=== PATIENT | male | born 1955 | race Caucasian/White ===

== ENCOUNTER 2022-07-08 14:56 | Emergency (ER) | payer MEDICARE, SELFPAY ==
[2022-07-08 15:15] VITALS: BP 144/84; PULSE 82; RESP 16; TEMP 36.7; O2SAT 99
--- NOTE | 2022-07-08 16:28 | ED.GENADULT ---
HPI - General Adult General Chief complaint: Eye Problems Stated complaint: FB in right eye Source: patient Mode of arrival: ambulatory Limitations: no limitations History of Present Illness HPI narrative: Patient presents for evaluation of right eye irritation. He indicates he was mowing the lawn earlier today. He went inside was sitting at a table when he felt something go into his right eye. Since that time he has noted redness and tearing. He had some discomfort earlier but that has resolved. Denies any visual disturbance. He does not wear glasses or contacts. He is not diabetic. He does smoke. Date of last tetanus unknown. Related Data Home Medications Medication Instructions Recorded Confirmed aspirin 81 mg capsule 81 mg PO DAILY 07/08/22 07/08/22 atorvastatin 20 mg tablet 20 mg EVERY OTHER DAY 07/08/22 07/08/22 lisinopril 40 mg tablet 40 mg DAILY 07/08/22 07/08/22 Allergies Allergy/AdvReac Type Severity Reaction Status Date / Time No Known Allergies Allergy Verified 07/08/22 15:44 Review of Systems Review of Systems: CONSTITUTIONAL: Denies fever, chills, or sweats. EYES: Reports irritation, redness and tearing from the right eye. Reports discomfort in the right eye earlier, now resolved ENT: Denies rhinorrhea, congestion, sore throat, or otalgia. CARDIOVASCULAR: Denies chest pain, palpitations, or edema. RESPIRATORY: Denies cough or dyspnea. GASTROINTESTINAL: Denies abdominal pain, nausea, vomiting, or diarrhea. GENITOURINARY: Denies dysuria or hematuria. SKIN: Denies rash or itching. MUSCULOSKELETAL: Denies back pain, joint pain, or myalgia. NEUROLOGIC: Denies headache, numbness, dizziness, or weakness. PSYCHIATRIC: Denies anxiety or depression. [facility] Past Medical History Medical History No pertinent past medical history Surgical History Surgical History No pertinent past surgical history Family History Family History Mother Family history non-contributory Social History Social History Smoking packs per day: 0.5 Smoking cigarettes per day: 10.0 Smoking status: Current every day smoker Living arrangements: with family Gender identity (if verbalized by the patient): Male Spiritual care concerns: No Exam Narrative: GENERAL: Well-appearing, well-nourished, and in no acute distress. HEAD: Normocephalic, atraumatic. EYES: There is right conjunctival injection with associated tearing. No foreign body visualized. There is an area of dye uptake noted at 3:00 in the right eye when evaluated with fluorescein and Wood's lamp evaluation ENT: Nares clear, no rhinorrhea or epistaxis. Mucous membranes moist. Oropharynx without tonsillar hypertrophy exudate or other lesions. Bilateral TMs pearly lawrence nonbulging NECK: Supple. No adenopathy or masses. No carotid bruits or JVD CHEST: Clear to auscultation. No respiratory distress. No wheezes rales or rhonchi HEART: Regular rate and rhythm. No murmur heard. Normal peripheral pulses. ABDOMEN: Soft, nontender, nondistended, normal active bowel sounds. EXTREMITIES: Normal range of motion. No edema. SKIN: Warm, dry, no rash. NEURO: No focal deficits. Alert and oriented x3. PSYCH: Normal mood and affect. Course Course Emergency Course: This is a 66-year-old male who presented for evaluation of right eye irritation. On exam he has evidence of a corneal abrasion. Will treat with erythromycin. Tetanus was updated. Follow-up outpatient for further evaluation and treatment for the ER for worsening symptoms. Patient is in agreement with plan of care. Level of Care: Express Care Visit Vital Signs Vital signs: Vital Signs Temperature 36.7 C 07/08/22 15:15 Pulse Rate 82 07/08/22 15:15 Respiratory
--- NOTE | 2022-07-08 16:40 | PC.NURSE ---
Pt and state upon thinking further, patient received his TDAP booster in 2019 while working on his daughter's home. Order cancelled, not administered.
== END 2022-07-08 16:39 | disposition home or self-care (01) ==
PROVIDERS: Emergency Provider Nurse Practitioner; PCP Internal Medicine
DX: S05.01XA Injury of conjunctiva and corneal abrasion without foreign body, right eye, initial encounter (principal); X58.XXXA Exposure to other specified factors, initial encounter; F17.210 Nicotine dependence, cigarettes, uncomplicated
CPT/HCPCS: 99203; A9270; G0463

== ENCOUNTER 2025-08-11 15:06 | Emergency (ER) | payer OTHER, SELFPAY ==
[2025-08-11 15:11] VITALS: BP 183/95; PULSE 68; RESP 20; TEMP 36.6; O2SAT 98
[2025-08-11 15:30] LABS: EDSTREPNEGPOS1 Negative (Negative)
--- NOTE | 2025-08-11 15:40 | ED.URI ---
HPI - URI/Sore Throat General Chief Complaint: Upper Respiratory Infection Stated Complaint: ear/throat Time Seen by Provider: 08/11/25 15:25 Source: patient and RN notes reviewed Mode of arrival: ambulatory Limitations: no limitations History of Present Illness HPI Narrative: 69-year-old male patient presents Express Care complaining of sore throat and right ear pain since this morning. Patient is he woke up with symptoms. Patient says his sore throat is severe. Patient says he is unable to swallow, unable to eat is able to drink some coffee this morning. Patient denies any fevers, body aches, chills, nausea vomiting, cough, any other upper respiratory symptoms, chest pain, breathing problems, or any other symptoms. Related Data Home Medications ?Medication ?Instructions ?Recorded ?Confirmed ?Last Taken ?Type aspirin 81 mg capsule 81 mg PO DAILY 07/08/22 07/08/22 Unknown History atorvastatin 20 mg tablet 20 mg EVERY OTHER DAY 07/08/22 07/08/22 Unknown History lisinopril 40 mg tablet 40 mg DAILY 07/08/22 07/08/22 Unknown History meloxicam 15 mg tablet mg 08/11/25 Unknown History Allergies Allergy/AdvReac Type Severity Reaction Status Date / Time No Known Allergies Allergy Verified 08/11/25 15:07 Review of Systems Review of Systems: CONSTITUTIONAL: Denies fever, chills, or sweats. EYES: Denies visual changes, redness, or discharge. ENT: Denies rhinorrhea, congestion, difficulty clearing secretions, or otalgia. Positive sore throat and difficulty swallowing. CARDIOVASCULAR: Denies chest pain, palpitations, or edema. RESPIRATORY: Denies cough, difficulty breathing, wheezing, or dyspnea. GASTROINTESTINAL: Denies abdominal pain, nausea, vomiting, or diarrhea. GENITOURINARY: Denies dysuria or hematuria. SKIN: Denies rash or itching. MUSCULOSKELETAL: Denies back pain, joint pain, or myalgia. NEUROLOGIC: Denies headache, numbness, or weakness. PSYCHIATRIC: Denies anxiety or depression. All other systems reviewed are negative, except as documented in HPI. [facility] Past Medical History Medical History No pertinent past medical history Surgical History Surgical History No pertinent past surgical history Family History Family History Mother Family history non-contributory Social History Social History Smoking packs per day: 0.5 Smoking cigarettes per day: 10.0 Smoking status: Current every day smoker Living arrangements: with family Gender identity (if verbalized by the patient): Male Spiritual care concerns: No Comments At the time of my signature, I reviewed and agree with the nursing past medical, surgical, social, and family history. There is no relevant family history pertinent to the patient complaint. Exam Narrative: GENERAL: This is a well-nourished, well-developed adult, in no apparent distress. They are non ill-appearing, nontoxic appearing. HEAD: normocephalic, atraumatic. EYES: Sclera clear/white. Conjunctiva normal. Vision is grossly intact. Extraocular movements intact EARS: External ears normal, auditory canals with impacted cerumen bilaterally, unable to visualize TMs.. Hearing grossly intact. NOSE: External nose normal with no obvious nasal discharge, nasal turbinates without redness, no rhinorrhea. THROAT: Mucous membranes moist, posterior pharynx erythematous, right posterior pharynx more swollen than left with a Uvula shift towards the left. No trismus. NECK: Neck supple, non-tender without lymphadenopathy, masses or thyromegaly. CARDIOVASCULAR: Regular rate and rhythm without murmurs, gallops, or rubs. RESPIRATORY: Clear to auscultation. Breath sounds equal bilaterally. No wheezes, rales, or rhonchi. SKIN: warm, Dry, intact with no suspicious lesions or rash, good texture and turgor. NEURO: awake, alert, and oriented to person, place and time. There were no obvious focal neurologic abnormalities. EXTREMITIES: No joint tenderness, effusion, or edema noted. BACK: Nontender without deformity. Course Course Level of Care: Express Care Visit Vital Signs Vital signs: Vital Signs Temperature 97.9 F 08/11/25 15:11 Pulse Rate 68 08/11/25 15:11 Respiratory Rate 20 08/11/25 15:11 Blood Pressure 183/95 H 08/11/25 15:11 Pulse Oximetry 98 08/11/25 15:11 Oxygen Delivery Room Air 08/11/25 15:11 Temperature 97.9 F 08/11/25 15:11 Pulse Rate 68 08/11/25 15:11 Respiratory Rate 20 08/11/25 15:11 Blood Pressure 183/95 H 08/11/25 15:11 Pulse Oximetry 98 08/11/25 15:11 Oxygen Delivery Room Air 08/11/25 15:11 Transfer Transfered to: [facility] ([place] Transportation: Other (Private Vehicle) Transfer rationale: Rule out peritonsillar abscess, patient required higher level care, advanced imaging Accepting physician: Dr. Whelan [facility] MDM Narrative Medical decision making narrative: Rapid strep negative. Throat culture is pending. There is concern for peritonsillar abscess on exam. Patient is having no breathing problems, no issues clearing secretions, says he is unable to swallow and eat due to pain and swelling. Patient says he has not tried to eat but has had a small amount of coffee this morning. Given patient's symptoms, it is recommend the patient seek a higher level care and proceed immediately to the emergency department. Patient agreeable to go to [facility]. Called over to [facility] spoke to Jackelyn Nayak who is wear this patient and Dr. Whelan who accepted the patient for transfer. Patient vital signs hemodynamically stable, patient nontoxic appearing, no apparent distress. Patient to go to the hospital via private vehicle with spouse. Patient stable for transfer take himself to the hospital via private vehicle. Differential Diagnosis Differential Diagnosis: Viral pharyngitis, strep throat, peritonsillar abscesses, peritonsillar cellulitis, upper respiratory infection Lab Data [facility] Lab Attestation statement: I personally reviewed the patient's lab results. Labs: Lab Results 08/11/25 Range/Units 15:28 POC Grp A Strep Screen Negative (Negative) Critical Care Time Critical Care Time Critical Care Time: No Discharge Plan Discharge Clinical Impression: Peritonsillar abscess determined by examination Patient Disposition: Acute Care Hospital Condition: Stable Patient Language: Polish Prescriptions: No Action atorvastatin 20 mg tablet 20 mg EVERY OTHER DAY lisinopril 40 mg tablet 40 mg DAILY aspirin 81 mg Capsule 81 mg PO DAILY meloxicam 15 mg tablet Follow-up/Referrals: Juan Miguel,Demar Serna MD [Primary Care Provider, Unknown] Time of Disposition: 15:40
== END 2025-08-11 15:45 | disposition short-term general hospital (02) ==
PROVIDERS: PCP Internal Medicine
DX: J36 Peritonsillar abscess (principal); F17.210 Nicotine dependence, cigarettes, uncomplicated; Z79.82 Long term (current) use of aspirin
CPT/HCPCS: 87081; 87880; 99213; G0463